=== PATIENT | male | born 1960 | race Caucasian/White ===

== ENCOUNTER 2025-07-11 11:30 | Outpatient (CLI) | payer MEDICARE, BC, SELFPAY ==
--- NOTE | 2025-07-11 12:50 | P.ANES_ITS ---
Anesthesia Charges Start Date/Time Anesthesia Start Date: 07/11/25 Anesthesia Start Time: 12:20 Stop Date/Time Anesthesia Stop Date: 07/11/25 Anesthesia Stop Time: 12:45 Coding CPT Codes CPT Codes: ANES LWR INTST SCR COLSC - [id number] ([id number]) P3 - PATIENT W/SEVERE SYS DISEASE, QX - TANK BUILDER AND ERECTOR SVC W/ MD MED DIRECTION, QK - KNOCKDOWN WORKER 2-4 CNCRNT ANES PROC
--- NOTE | 2025-07-11 12:50 | W.ANESCHARGE ---
Anesthesia Charges Start Date/Time Anesthesia Start Date: 07/11/25 Anesthesia Start Time: 12:20 Stop Date/Time Anesthesia Stop Date: 07/11/25 Anesthesia Stop Time: 12:45 Coding CPT Codes CPT Codes: ANES LWR INTST SCR COLSC - [id number] ([id number]) P3 - PATIENT W/SEVERE SYS DISEASE, QX - HEAVY EQUIPMENT ENGINE MECHANIC SVC W/ MD MED DIRECTION, QK - CHIEF INVESTIGATOR 2-4 CNCRNT ANES PROC
--- NOTE | 2025-07-11 12:58 | P.ANES_ITS ---
Anesthesia Charges Start Date/Time Anesthesia Start Date: 07/11/25 Anesthesia Start Time: 12:20 Stop Date/Time Anesthesia Stop Date: 07/11/25 Anesthesia Stop Time: 12:45 Coding CPT Codes CPT Codes: ANES LWR INTST SCR COLSC - [id number] ([id number]) QK - INFORMATION SYSTEMS SECURITY MANAGER 2-4 CNCRNT ANES PROC, QX - MENDING CARRIER SVC W/ MED DIRECTION, P3 - PATIENT W/SEVERE SYS DISEASE
--- NOTE | 2025-07-11 12:58 | W.ANESCHARGE ---
Anesthesia Charges Start Date/Time Anesthesia Start Date: 07/11/25 Anesthesia Start Time: 12:20 Stop Date/Time Anesthesia Stop Date: 07/11/25 Anesthesia Stop Time: 12:45 Coding CPT Codes CPT Codes: ANES LWR INTST SCR COLSC - [id number] ([id number]) QK - TRACER LATHE SET UP OPERATOR 2-4 CNCRNT ANES PROC, QX - HOT MILL ROLLER SVC W/ MED DIRECTION, P3 - PATIENT W/SEVERE SYS DISEASE
== END 2025-07-11 11:31 | disposition home or self-care (01) ==
LOC: OP CLINIC 11:34
PROVIDERS: PCP Physician Assistant Medical; Visit Provider Internal Medicine Gastroenterology
DX: Z12.11 Encounter for screening for malignant neoplasm of colon (principal); Z86.0101 Personal history of adenomatous and serrated colon polyps
CPT/HCPCS: 00812; 45378; J2704